=== PATIENT | female | born 2005 | race African-American/Black ===

== ENCOUNTER 2023-10-25 13:36 | Emergency (ER) | payer OTHER ==
[~2023-10-25] VITALS: Ht 170.2 cm; Wt 80.7 kg
[2023-10-25 18:51] VITALS: BP 130/60; TEMP 99.1; O2SAT 100
== END 2023-10-25 18:54 | disposition home or self-care (01) ==
LOC: M ED 13:36
DX: S80.911A Unspecified superficial injury of right knee, initial encounter (principal); W10.1XXA Fall (on)(from) sidewalk curb, initial encounter; Y92.410 Unspecified street and highway as the place of occurrence of the external cause; Y93.89 Activity, other specified; Y99.9 Unspecified external cause status